=== PATIENT | male | born 1945 | race Hispanic/Latino ===

== ENCOUNTER → 2022-04-27 | Outpatient (CLI) | payer OTHER ==
[~2022-04-27] MED LIST: ATOR20TA65 PO; BUDE10.2 IH; CYCL10TA16 PO; GABA-531 PO; LEVO75TA10 PO; SOLI5 PO; TAMS0.4C32 PO; TRAM50TA4 PO
== END | disposition home or self-care (01) ==
LOC: RAH 12:28
PROVIDERS: ATTEND Family Medicine
DX: I11.9 Hypertensive heart disease without heart failure (principal); E66.9 Obesity, unspecified
CPT/HCPCS: 93306

== ENCOUNTER 2022-07-02 15:04 | Emergency (ER) | payer OTHER ==
[~2022-07-02] VITALS: Ht 172.7 cm; Wt 108.9 kg
[2022-07-02 15:45] LABS: BASOPHILS % (AUTO) 0.6 % (0.0-5.0); EOSINOPHILS % (AUTO) 1.9 % (0.0-8.0); HEMATOCRIT 52.6 % (42-54); MEAN CORPUSCULAR HEMOGLOBIN 30.4 pg (27.0-33.0); MEAN CORPUSCULAR HGB CONC 32.3 g/dL (32.0-36.0); MEAN CORPUSCULAR VOLUME 93.9 fL (79-99); MONOCYTES % (AUTO) 6.8 % (3.0-13.0); NEUTROPHILS % (AUTO) 77.4 % (40.0-77.0); PLATELET COUNT (AUTO) 141 K/uL (130-400); RED CELL DISTRIBUTION WIDTH 13.1 % (11.0-15.5); WHITE BLOOD COUNT (AUTO) 6.9 K/uL (4.8-10.8)
[2022-07-02 16:04] LABS: CREATININE 0.9 mg/dL (0.5-1.5); POTASSIUM 4.5 mmol/L (3.5-5.1)
[2022-07-02 16:08] LABS: ALBUMIN 3.3 g/dL (3.5-5.0); TOTAL PROTEIN, SERUM 7.2 g/dL (6.0-8.3)
[2022-07-02] MEDS ORDERED: IOHEXOL 350 MG/ML 100ML INFUS..BTL IV ONE (17:52)
[2022-07-02] MEDS ORDERED: AMOX1TAB14 PO (20:20)
[2022-07-02] MEDS ORDERED: PRED15SO12 PO (20:20)
[2022-07-02] MEDS ORDERED: IBUP100O20 PO (20:20)
[2022-07-02 20:31] VITALS: BP 127/62
== END 2022-07-02 21:00 | disposition home or self-care (01) ==
LOC: EDH 15:04
DX: J44.1 Chronic obstructive pulmonary disease with (acute) exacerbation (principal); R13.10 Dysphagia, unspecified; J03.90 Acute tonsillitis, unspecified; Z85.89 Personal history of malignant neoplasm of other organs and systems; Z20.822 Contact with and (suspected) exposure to COVID-19
CPT/HCPCS: 99285; 80053; 85025; 87880; 87804 ×2; 36415; 87635; 71045; 70491; C9803; Q9967